=== PATIENT | female | born 1990 | race Two or more races ===

== ENCOUNTER 2017-11-02 18:11 | Outpatient (CLI) | payer OTHER ==
[~2017-11-02] VITALS: Ht 167.6 cm; Wt 91.0 kg
[2017-11-02] MEDS ORDERED: PRENATAL VITAM1 EAC4 PO (18:38)
[2017-11-02 19:11] LABS: HEMATOCRIT 31.7 % (36.0-46.0); MCH 28.1 PG (29.0-34.0); MCHC 33.4 G/DL (30.0-36.0); MCV 84.1 FL (83-99); MEAN PLAT.VOLUME 12.2 uM^3 (9.5-12.4); PLATELET COUNT 181 K/uL (156-360); RBC DIS.WIDTH-CV 13.5 % (11.8-14.6); RBC DIS.WIDTH-SD 41.3 % (39-53); RED BLOOD COUNT 3.77 M/uL (3.80-5.20); WHITE BLOOD COUNT 7.1 K/uL (4.1-10.2)
[2017-11-02 19:19] LABS: CHLORIDE 105 mEq/L (99-109); POTASSIUM 4.3 mEq/L (3.7-5.4); SODIUM 138 mEq/L (136-147)
[2017-11-02 19:21] LABS: GLUCOSE 70 mg/dL (70-99)
[2017-11-02 19:23] LABS: ANION GAP 11 MEQ/L (2-14)
[2017-11-02 19:25] LABS: GFR ESTIMATE (CALCULATED) > 59 mL/min/
[2017-11-02 19:26] LABS: UREA NITROGEN (BUN) 7 mg/dL (9-23)
[2017-11-02 20:39] VITALS: BP 121/69
== END 2017-11-02 23:55 | disposition home or self-care (01) ==
LOC: LDRP-OP 18:11 → EME 18:11 → EDSTATUS 20:33 → 2WEST 20:33
PROVIDERS: Emergency Medicine
DX: O36.8130 Decreased fetal movements, third trimester, not applicable or unspecified (principal); W10.9XXA Fall (on) (from) unspecified stairs and steps, initial encounter; O34.219 Maternal care for unspecified type scar from previous cesarean delivery; Z3A.32 32 weeks gestation of pregnancy
CPT/HCPCS: 59025; 70450; 71010; 72125; 80048; 85027; 86850; 86900; 86901; 99281; 99285; G0378